=== PATIENT | male | born 1965 | race Caucasian/White ===

== ENCOUNTER 2017-06-10 10:11 | Outpatient (CLI) | payer OTHER | END 2017-06-10 10:30 | disposition home or self-care (01) | LOC: NUCLEAR 10:11 | DX: M25.50 Pain in unspecified joint (principal) | CPT/HCPCS: 78306; A9503 ==

== ENCOUNTER 2020-09-14 14:12 | Outpatient (CLI) | payer OTHER | END 2020-09-14 14:26 | disposition home or self-care (01) | LOC: RAD 14:12 | PROVIDERS: ATTEND Specialist | DX: M25.50 Pain in unspecified joint (principal) ==

== ENCOUNTER 2020-10-25 14:19 | Outpatient (CLI) | payer OTHER | END 2020-10-25 14:26 | disposition home or self-care (01) | LOC: RAD 14:19 | DX: S62.396A Other fracture of fifth metacarpal bone, right hand, initial encounter for closed fracture (principal) ==